=== PATIENT | male | born 2005 | race Caucasian/White ===

== ENCOUNTER 2024-11-06 11:11 | Emergency (ER) | payer OTHER ==
[2024-11-06 11:31] VITALS: BP 133/91; PULSE 102; RESP 18; TEMP 97.1; BMI 25.1
[2024-11-06] MEDS ORDERED: BACITRACIN ZINC 15 GM TUBE TOPICAL OINTMENT ONE (12:53)
[2024-11-06] MEDS: BACITRACIN ZINC 15 GM TUBE TOPICAL OINTMENT TP ONE (12:56)
== END 2024-11-06 12:59 | disposition home or self-care (01) ==
LOC: JERFT 11:11
DX: S80.212A Abrasion, left knee, initial encounter (principal); Z48.02 Encounter for removal of sutures; V29.99XA Rider (driver) (passenger) of other motorcycle injured in unspecified traffic accident, initial encounter
CPT/HCPCS: 99282-25